=== PATIENT | female | born 1970 | race Caucasian/White ===

== ENCOUNTER 2017-05-02 13:51 | Emergency (ER) | payer MEDICAID ==
[2017-05-02] MEDS ORDERED: HYDROCODONE/ACETAMINOPHEN 5-325 MG TABLET PO ONE (15:11)
--- NOTE | 2017-05-02 15:13 | ER Document Report ---
HPI - HPI Patient complains to provider of: Foot injury Onset: Other - 3Days ago Onset/Duration: Persistent Quality of pain: Achy Pain Level: 3 Context: Patient states she was walking and injured her right ankle 3 days ago. Patient suspects that she may have rolled it. Patient complains of continued pain with weightbearing. Associated Symptoms: Other - Foot injury Exacerbated by: Standing, Movement, Walking Relieved by: Denies Similar symptoms previously: Yes Recently seen / treated by doctor: No - ROS ROS below otherwise negative: Yes Systems Reviewed and Negative: Yes All other systems reviewed and negative - CONSTITUTIONAL Constitutional: DENIES: Fever - NEURO Neurology: DENIES: Weakness - MUSCULOSKELETAL Musculoskeletal: REPORTS: Extremity pain - r ankle pain - DERM Skin Color: Normal Skin Problems: None Past Medical History - General Information source: Patient - Social History Smoking Status: Current Every Day Smoker Smoking Education Provided: Yes Frequency of alcohol use: None Drug Abuse: None Occupation: none Lives with: Family Family History: None Renal/ Medical History: Denies: Hx Peritoneal Dialysis Psychiatric Medical History: Reports: Hx Anxiety, Hx Depression Past Surgical History: Reports: Hx Orthopedic Surgery - 2 ankle surgery Vertical Provider Document - CONSTITUTIONAL Agree With Documented VS: Yes Exam Limitations: No Limitations General Appearance: WD/WN, No Apparent Distress - INFECTION CONTROL TRAVEL OUTSIDE OF THE [place] IN LAST 30 DAYS: No - HEENT HEENT: Atraumatic, Normocephalic - NECK Neck: Normal Inspection - RESPIRATORY Respiratory: No Respiratory Distress O2 Sat by Pulse Oximetry: 98 - CARDIOVASCULAR Pulses: Normal: Dorsalis pedis - MUSCULOSKELETAL/EXTREMETIES Musculoskeletal/Extremeties: MAEW, Tender - Right ankle tenderness to bilateral malleolar area, worse to lateral aspect. Patient with 2+ edema with ecchymosis. Patient with right lateral midfoot tenderness over fifth metatarsal , Edema, Eccymosis - NEURO Level of Consciousness: Awake, Alert, Appropriate Motor/Sensory: No Motor Deficit - DERM Integumentary: Warm, Dry Course - Vital Signs Vital signs: Temp Pulse Resp BP Pulse Ox 98.0 F 71 20 142/97 H 98 05/02/17 14:14 05/02/17 14:14 05/02/17 14:14 05/02/17 14:14 05/02/17 14:14 - Diagnostic Test Radiology reviewed: Reports reviewed Procedures - Immobilization Right Ankle Pre-Proc Neuro Vasc Exam: Normal Immobilizer type: Ankle stirrup Performed by: PCT Post-Proc Neuro Vasc Exam: Normal Alignment checked and good: Yes Discharge - Discharge Clinical Impression: Right foot pain, Elevated blood pressure reading Right ankle sprain Qualifiers: Encounter type: initial encounter Involved ligament of ankle: unspecified ligament Qualified Code(s): S93.401A - Sprain of unspecified ligament of right ankle, initial encounter Condition: Stable Disposition: HOME, SELF-CARE Instructions: Oral Narcotic Medication ([facility]), Sprain ([facility]), Sprained Ankle ([facility] ) Additional Instructions: Return immediately for any new or worsening symptoms Followup with your primary care provider, call tomorrow to make a followup appointment Prescriptions: Hydrocodone/Acetaminophen [[place] 5-325 Tablet] 1 each PO Q4 PRN #12 tablet PRN Reason: Forms: Elevated Blood Pressure, Smoking Cessation Education Referrals: [facility] ([facility]) [Provider Group] - Follow up as needed
--- NOTE | 2017-05-02 16:28 | RADIOLOGY REPORT (SQ) ---
EXAM DESCRIPTION: FOOT RIGHT COMPLETE COMPLETED DATE/TIME: 05/02/2017 4:13 pm REASON FOR STUDY: r lat foot/ankle pain COMPARISON: None. NUMBER OF VIEWS: Three views. TECHNIQUE: AP, lateral and oblique radiographic images acquired of the right foot. LIMITATIONS: None. FINDINGS: MINERALIZATION: Normal. BONES: No acute fracture or dislocation. No worrisome bone lesions. JOINTS: No effusions. SOFT TISSUES: No soft tissue swelling. No foreign body. OTHER: No other significant finding. IMPRESSION: NEGATIVE STUDY OF THE RIGHT FOOT. NO RADIOGRAPHIC EVIDENCE OF ACUTE INJURY. TECHNICAL DOCUMENTATION: JOB ID: [id number] [employer] All Rights Reserved
--- NOTE | 2017-05-02 16:28 | RADIOLOGY REPORT (SQ) ---
EXAM DESCRIPTION: ANKLE RIGHT COMPLETE COMPLETED DATE/TIME: 05/02/2017 4:13 pm REASON FOR STUDY: r lat foot/ankle pain COMPARISON: None. NUMBER OF VIEWS: Three views. TECHNIQUE: AP, lateral, and oblique radiographic images acquired of the right ankle. LIMITATIONS: None. FINDINGS: MINERALIZATION: Normal. BONES: No acute fracture or dislocation. No worrisome bone lesions. JOINTS: No effusions. SOFT TISSUES: No soft tissue swelling. No foreign body. OTHER: No other significant finding. IMPRESSION: NEGATIVE STUDY OF THE RIGHT ANKLE. NO RADIOGRAPHIC EVIDENCE OF ACUTE INJURY. TECHNICAL DOCUMENTATION: JOB ID: [id number] [employer]- All Rights Reserved
[2017-05-02 17:39] VITALS: BP 153/98
== END 2017-05-02 17:39 | disposition home or self-care (01) ==
LOC: ER 13:51
PROC: 2W3QX1Z Immobilization of Right Lower Leg using Splint (ICD-10-PCS; principal; 2017-05-02)
DX: S93.401A Sprain of unspecified ligament of right ankle, initial encounter (principal); M25.571 Pain in right ankle and joints of right foot; R03.0 Elevated blood-pressure reading, without diagnosis of hypertension; X50.1XXA Overexertion from prolonged static or awkward postures, initial encounter; F17.200 Nicotine dependence, unspecified, uncomplicated
CPT/HCPCS: 99283; 73610; 73630; 29515; L4350

== ENCOUNTER 2017-12-14 02:23 | Emergency (ER) | payer MEDICAID ==
[2017-12-14 05:08] LABS: ABSOLUTE EOSINOPHILS # (AUTO) 0.2 10^3/uL (0.0-0.6); ABSOLUTE LYMPHOCYTES (AUTO) 3.4 10^3/uL (0.5-4.7); ABSOLUTE MONOCYTES (AUTO) 0.5 10^3/uL (0.1-1.4); BASOPHILS % (AUTO) 0.4 % (0-2); HEMATOCRIT 37.3 % (36.0-47.0); HEMOGLOBIN 12.8 g/dL (12.0-15.5); LYMPHOCYTES % (AUTO) 41.4 % (13-45); MEAN CORPUSCULAR HEMOGLOBIN 30.3 pg (27.0-33.4); MEAN CORPUSCULAR HGB CONC 34.3 g/dL (32.0-36.0); MEAN CORPUSCULAR VOLUME 88 fl (80-97); MONOCYTES % (AUTO) 6.4 % (3-13); PLATELET COUNT 234 10^3/uL (150-450); RED BLOOD COUNT 4.22 10^6/uL (3.72-5.28); RED CELL DISTRIBUTION WIDTH 13.5 % (11.5-14.0); SEGMENTED NEUTROPHILS % (AUTO) 48.8 % (42-78); TOTAL CELLS COUNTED % (AUTO) 100 %; WHITE BLOOD COUNT 8.1 10^3/uL (4.0-10.5)
[2017-12-14 05:17] LABS: ALANINE AMINOTRANSFERASE 36 U/L (9-52); ALBUMIN 3.8 g/dL (3.5-5.0); ALKALINE PHOSPHATASE 117 U/L (38-126); ANION GAP 9 (5-19); ASPARTATE AMINO TRANSFERASE 26 U/L (14-36); BILIRUBIN,DIRECT 0.2 mg/dL (0.0-0.4); BILIRUBIN,TOTAL 0.2 mg/dL (0.2-1.3); BLOOD UREA NITROGEN 19 mg/dL (7-20); CARBON DIOXIDE 27 mmol/L (22-30); CHLORIDE 112 mmol/L (98-107); GLUCOSE 110 mg/dL (75-110); POTASSIUM 4.4 mmol/L (3.6-5.0); SODIUM 148.1 mmol/L (137-145)
[2017-12-14 05:19] LABS: ACETAMINOPHEN < 10 ug/mL (10-30); ALCOHOL < 10 mg/dL (NONE DETECTED); SALICYLATE < 1.0 mg/dL (2.0-20.0)
[2017-12-14 05:23] LABS: APPEARANCE,URINE SLIGHTLY-CLOUDY; BILIRUBIN,URINE NEGATIVE (NEGATIVE); COLOR,URINE YELLOW; GLUCOSE, URINE NEGATIVE (NEGATIVE); KETONES,URINE NEGATIVE (NEGATIVE); LEUKOCYTE ESTERASE,URINE NEGATIVE (NEGATIVE); NITRITE,URINE NEGATIVE (NEGATIVE); PROTEIN,URINE NEGATIVE (NEGATIVE); URINE SPECIFIC GRAVITY 1.024
[2017-12-14 05:34] LABS: URINE AMPHETAMINES SCREEN NEGATIVE; URINE BARBITURATES SCREEN NEGATIVE; URINE BENZODIAZEPINES SCREEN UNCONFIRMED POSITIVE; URINE COCAINE SCREEN NEGATIVE; URINE MARIJUANA (THC) SCREEN UNCONFIRMED POSITIVE; URINE METHADONE SCREEN NEGATIVE; URINE PHENCYCLIDINE SCREEN NEGATIVE
--- NOTE | 2017-12-14 06:20 | ER Document Report ---
ED Psych Disorder / Suicide - General Mode of Arrival: Ambulatory Information source: Patient TRAVEL OUTSIDE OF THE [place] IN LAST 30 DAYS: No <YADIRA SALDIVAR - Last Filed: 12/14/17 06:20> <VENTURA MARIN - Last Filed: 12/14/17 14:52> <ROLDAN TERRELL - Last Filed: 12/14/17 15:01> - General Chief Complaint: Suicidal Ideation Stated Complaint: PSYCH EVAL Time Seen by Provider: 12/14/17 03:20 Notes: Patient is a 47-year-old female who presents with her two sons and mobile crisis with chief complaint of depression. Patient reports multiple issues at home with her family. Patient lives with 2 of her sons as well as multiple extended family members and patient reports that there is a lot of "drama in the house. Patient reports that she needs a respite home to stay in. Patient initially denied any suicidal or homicidal ideations. Patient does report long- standing history of depression and anxiety for which she is not taking any medications for. At the end of my examination patient did reports that if I sent her home she will "kill herself by overdosing on medications or alternatively patient reported that she will harm other people as she states that she has visions of herself hurting people however she states that she has been able to refrain from following through on these visions. (YADIRA SALDIVAR) - Related Data Allergies/Adverse Reactions: cyclobenzaprine [From Flexeril] Allergy (Verified 04/12/17 09:17) diphenhydramine [From Benadryl Allergy] Allergy (Verified 04/12/17 09:17) Past Medical History - General Information source: Patient - Social History Smoking Status: Current Every Day Smoker Frequency of alcohol use: None Drug Abuse: Marijuana Family History: None Patient has suicidal ideation: Yes - OD, "get fucked up and sleep," drown Patient has homicidal ideation: No - Past Medical History Cardiac Medical History: Reports: Hx Hypercholesterolemia Renal/ Medical History: Denies: Hx Peritoneal Dialysis Musculoskeletal Medical History: Reports Hx Arthritis Psychiatric Medical History: Reports: Hx Anxiety, Hx Depression - +anxiety Past Surgical History: Reports: Hx Orthopedic Surgery - 2 ankle surgery <YADIRA SALDIVAR - Last Filed: 12/14/17 06:20> Review of Systems - Review of Systems Constitutional: No symptoms reported EENT: No symptoms reported Cardiovascular: No symptoms reported Respiratory: No symptoms reported Gastrointestinal: No symptoms reported Genitourinary: No symptoms reported Female Genitourinary: No symptoms reported Musculoskeletal: No symptoms reported Skin: No symptoms reported Hematologic/Lymphatic: No symptoms reported Neurological/Psychological: See HPI <YADIRA SALDIVAR - Last Filed: 12/14/17 06:20> Physical Exam <YADIRA SALDIVAR - Last Filed: 12/14/17 06:20> <VENTURA MARIN - Last Filed: 12/14/17 14:52> <ROLDAN TERRELL - Last Filed: 12/14/17 15:01> - Vital signs Vitals: Temp Pulse Resp BP Pulse Ox 98 F 88 19 166/99 H 97 12/14/17 02:24 12/14/17 02:24 12/14/17 02:24 12/14/17 02:24 12/14/17 02:24 - Notes Notes: PHYSICAL EXAMINATION: GENERAL: Well-appearing, well-nourished and in no acute distress. HEAD: Atraumatic, normocephalic. EYES: Pupils equal round and reactive to light, extraocular movements intact, conjunctiva are normal. ENT: Nares patent, oropharynx clear without exudates. Moist mucous membranes. NECK: Normal range of motion, supple without lymphadenopathy LUNGS: Breath sounds clear to auscultation bilaterally and equal. No wheezes rales or rhonchi. HEART: Regular rate and rhythm without murmurs ABDOMEN: Soft, nontender, nondistended abdomen. No guarding, no rebound. No masses appreciated. Female : deferred Musculoskeletal: Normal range of motion, no pitting or edema. No cyanosis. NEUROLOGICAL: Cranial nerves grossly intact. Normal speech, normal gait. Normal sensory, motor exams PSYCH: Normal mood, normal affect. SKIN: Warm, Dry, normal turgor, no rashes or lesions noted. (YADIRA SALDIVAR) Course - Laboratory Result Diagrams: 12/14/17 04:55 12/14/17 04:55 <YADIRA SALDIVAR - Last Filed: 12/14/17 06:20> - Laboratory Result Diagrams: 12/14/17 04:55 12/14/17 04:55 <VENTURA MARIN - Last Filed: 12/14/17 14:52> - Laboratory Result Diagrams: 12/14/17 04:55 12/14/17 04:55 <ROLDAN TERRELL - Last Filed: 12/14/17 15:01> - Re-evaluation Re-evalutation: Ms. Nolen is a 47-year-old female who presents with chief complaint of depression and anxiety. Patient is accompanied by her sons and as well as a mobile renal social worker. Patient reports that she needs respite from her home situation which she describes as "lots of drama". Patient initially denied any suicidal or homicidal thoughts to this provider however when patient asked if she would feel safe to go home patient now reporting that if I sent her home she will kill herself as patient does want to stay here. Patient also reports that she sees "visions" that show her harming other people. Then patient reports that she "just wants place to get some rest". I will not initiate the 24 hour hold at this time as patient is voluntarily here and I do not believe she is a flight risk. (YADIRA SALDIVAR) - Vital Signs Vital signs: Temp Pulse Resp BP Pulse Ox 97.8 F 71 15 134/87 H 96 12/14/17 09:25 12/14/17 09:25 12/14/17 09:25 12/14/17 09:25 12/14/17 09:25 - Laboratory Laboratory results interpreted by me: 12/14/17 12/14/17 04:55 04:55 Sodium 148.1 H Chloride 112 H Urine Urobilinogen 2.0 H Salicylates < 1.0 L Acetaminophen < 10 L Discharge <YADIRA SALDIVAR - Last Filed: 12/14/17 06:20> <VENTURA MARIN - Last Filed: 12/14/17 14:52> <ROLDAN TERRELL - Last Filed: 12/14/17 15:01> - Discharge Clinical Impression: Bipolar disorder, unspecified Qualifiers: Active/Remission status: remission status unspecified Qualified Code(s): F31.9 - Bipolar disorder, unspecified Condition: Stable Disposition: HOME, SELF-CARE Additional Instructions: Bipolar Disorder Bipolar disorder is also called manic-depressive disorder. Depression alternates with brain hyperactivity called diana. Each phase lasts from several days to a few weeks. We don't know exactly what causes bipolar disorder , but it's treatable. During the "manic phase," you may feel elated and energetic. You may have racing thoughts, rapid speech, increased activity, and grandiose ideas. During this time, you may not realize how poor your judgement is. Inappropriate spending, drug abuse, excessive alcohol use, marriage problems, and irresponsible sexual behavior are common during the manic phase. During the "depressive phase," you might feel depressed, guilty, worthless , fatigued, and unable to concentrate. You might have thoughts of suicide. Good treatments are available for bipolar disorder. [place] is a classic drug for bipolar disorder, and is still often useful. If the manic phase is very mild, an antidepressant alone can be prescribed. If the manic phase is very severe, an antipsychotic medicine (such as Haldol) may be needed. The treatment must be matched to your symptoms, so it's important to work closely with your psychiatric care provider. Contact your physician, the hospital emergency center, crisis line, or your counsellor if you are losing control or having self-destructive thoughts. Anxiety The physician feels that some of your health problems are being caused by anxiety. Anxiety affects your health in many ways. Anxiety alone can cause palpitations, sweats, chest pains, abdominal pains, shortness of breath, and headaches. It contributes to ulcer disease, high blood pressure, irritable bowel syndrome, and has been shown to cause flare-ups of many other diseases. Anxiety is not a simple disorder to treat. If the anxiety is due to recent life stresses, you may simply need time to "work through" the changes. If the anxiety is due to an underlying unhappiness with yourself or due to psychiatric disturbance, professional help will be needed. Your physician can refer you for further help if needed. Anti-anxiety medication is occasionally given if the stress is acute or if you are having trouble sleeping. Chronic or frequent use of these medications is not a good idea because the body becomes reliant on it, preventing you from dealing with life's normal stresses. Your recommended to follow-up with outpatient mental health provider of your choice; you have been provided a local resource list of providers. You have also been provided prescriptions for Zyprexa 5 mg twice daily and Cogentin 1 mg daily please take as directed and do not take your Seroquel and Klonopin please. AT ANY TIME, IF YOUR SYMPTOMS CHANGE SIGNIFICANTLY OR WORSEN OR YOU DEVELOP NEW SYMPTOMS, RETURN TO THE EMERGENCY DEPARTMENT IMMEDIATELY FOR RE-EVALUATION. Prescriptions: Benztropine Mesylate [Cogentin 1 mg Tablet] 1 tab PO DAILY #7 tab Olanzapine [Zyprexa 5 mg Tablet] 5 mg PO Q12 #14 tablet Referrals: PANTERA CARRASCO, [employer] CLEAN[employer] MANAGER [Primary Care Provider] - Follow up as needed [facility] [Outside] - Follow up as needed [facility] [Outside] - Follow up in 3-5 days
--- NOTE | 2017-12-14 09:56 | ER Document Report ---
Doctor's Note Notes: 12/14/17 09:55 Patient's records have been reviewed. It appears she is here with depression and increased stress due to the home environment. She is presently sleeping soundly. The plan is to evaluate for medication changes, then discharge to home. 12/14/17 13:49 The patient is complaining about pain wanting her gabapentin she is supposed to get. And her Celebrex. She tells me she takes 600 mg of Celebrex at a time, reviewing her records she actually is prescribed 200 mg twice daily. She also wants her e-cigarette vapor back and states she was told she could go outside to smoke. I told her that was not going to happen, and that we could get her nicotine patch. The patient proceeded to tell me that those working here "need to get their shit together".
[2017-12-14] MEDS ORDERED: BENZTROPINE MESYLATE 1 MG TABLET PO ONE (11:00)
[2017-12-14] MEDS ORDERED: OLANZAPINE 5 MG TABLET PO SCH (11:00)
--- NOTE | 2017-12-14 12:42 | PSYCHOLOGICAL NOTE ---
Psych Note - Psych Note Psych Note: Reason for Consult: suicidal ideation Patient is a 47-year-old female who presents with her two sons and mobile crisis with chief complaint of depression. Patient reports multiple issues at home with her family. Patient lives with 2 of her sons as well as multiple extended family members and patient reports that there is a lot of "drama" in the house. Patient reports that she needs a respite home to stay in. Patient disclosed she called mobile crisis because she "felt like giving up.... I feel worthless...I;m in the way... I am tired of hurting all the time." She continued disclosed frustration not being able to "settle." She was able to clarify that in disclosing that she moved to [facility] approximately a year or so ago to spend time with her grandparents. Both her grandparents have since passed with her grandmother passing in June and then her great father following in August. She discloses difficulty in getting over her grief and losing her grandmother. She reports she has "problems with issues my brain... I have not been the same since" her grandmother's passing. She disclosed that she is diagnosed with bipolar and has significant mood swings ; "people get scared to be around me.... When I talk to them they just walk away because he do not know what to say they just do not understand." She continues to disclose significant pain from her arthritis in addition to taking medications for that pain she is prescribed Seroquel and Klonopin. Chart review conducted attending physician noted Patient initially denied any suicidal or homicidal ideations. Patient does report long-standing history of depression and anxiety for which she is not taking any medications for. At the end of my examination patient did reports that if I sent her home she will "kill herself by overdosing on medications or alternatively patient reported that she will harm other people as she states that she has visions of herself hurting people however she states that she has been able to refrain from following through on these visions. Patient is alert and orientated to person, place, time and circumstance. Mood is dysphoric with tearful affect. Patient endorses passive suicidal and homicidal ideation i.e. no plans means or intent. Patient reports having visions of hurting people however there there is no evidence of delusions and behavior is congruent with intact reality based presentation i.e. organized and linear thought processes. Eye contact was well maintained. Conversational speech was within normal rate, tone and prosody. Intellectual abilities appear to be within average range. Attention and concentration are fair. Insight, judgment, impulse control are fair. Clinician met with patient again. She discloses she is feeling much better. She discussed the stressors in her home and was able to engage in problem solving with little assistance for clinician. Patient plans to obtain mental health service. Patient denies continued suicidal ideation. Medication recommendations per [facility]'s contracted psychiatrist Dr. Tariq GREENWOOD are as follows 1. Please discontinue Seroquel and Klonopin 2. Please start Zyprexa 5 mg twice daily 3. Please start Cogentin 1 mg daily 296.80 (F31.9) Unspecified bipolar disorder Impression/plan: Patient is cleared from acute psychiatric services. Patient denies continued suicidal ideation and is presenting calm. She was able to discuss the stressors in her home and was able to engage in problem solving with little assistance for clinician. She is demonstrating forward thinking with problem solving (ie. identifying her needs and plan of action). Patient is recommended to follow through with obtaining outpatient mental health services. Dr. Clemens was consulted on the care and management of this patient; attending physician is in agreement with recommendations and disposition.
[2017-12-14] MEDS ORDERED: NICOTINE 14 MG/24 HR PATCH.TD24 TD ONE (13:49)
[2017-12-14] MEDS ORDERED: CELECOXIB 200 MG CAPSULE PO SCH (14:00)
[2017-12-14] MEDS ORDERED: GABAPENTIN 300 MG CAPSULE PO SCH (14:00)
[2017-12-14 15:13] VITALS: BP 143/94
--- NOTE | 2017-12-14 19:36 | EKG REPORT ---
SEVERITY:- NORMAL ECG - SINUS RHYTHM : Confirmed by: Irma Benites MD 14-Dec-2017 19:35:33
[2017-12-15] MEDS ORDERED: BENZTROPINE MESYLATE 1 MG TABLET PO SCH (10:00)
== END 2017-12-14 15:13 | disposition home or self-care (01) ==
LOC: ER 02:23
DX: F31.9 Bipolar disorder, unspecified (principal); F41.9 Anxiety disorder, unspecified; Z88.8 Allergy status to other drugs, medicaments and biological substances; F17.200 Nicotine dependence, unspecified, uncomplicated; E78.00 Pure hypercholesterolemia, unspecified; M19.90 Unspecified osteoarthritis, unspecified site
CPT/HCPCS: 93005; 36415; 80307 ×4; 84703; 85025; 80053; 81001; 93010; J3490 ×3; 99285

== ENCOUNTER 2018-06-11 21:36 | Emergency (ER) | payer SELFPAY ==
[2018-06-11] MEDS ORDERED: PREDNISONE 20 MG TABLET PO ONE (23:35)
[2018-06-11] MEDS ORDERED: IPRATROPIUM/ALBUTEROL 0.5-2.5 MG/3 ML AMPUL NEB ONE (23:35)
[2018-06-11] MEDS ORDERED: SULFAMETHOXAZOLE/TRIMETHOPRIM 800-160 MG TABLET PO ONE (23:36)
[2018-06-11] MEDS ORDERED: CEPHALEXIN 500 MG CAPSULE PO ONE (23:36)
--- NOTE | 2018-06-12 00:39 | RADIOLOGY REPORT (SQ) ---
EXAM DESCRIPTION: XR CHEST 2 VIEWS COMPLETED DATE/TME: 06/11/2018 23:35 CLINICAL HISTORY: 47 years, Female, wheeze, SOB COMPARISON: None. NUMBER OF VIEWS: 2 TECHNIQUE: Frontal and lateral views of the chest LIMITATIONS: None. FINDINGS: Heart size is normal. Lungs are clear. No pneumothorax IMPRESSION: Negative chest copyright 2010 [employer]- All Rights Reserved
--- NOTE | 2018-06-12 00:49 | ER Document Report ---
ED General - General Chief Complaint: Abscess Stated Complaint: Cough Time Seen by Provider: 06/11/18 23:21 Notes: Patient is a 47-year-old female presents to the emergency department complaining of generalized cough and congestion for the entire month of May. Patient states for the last 2 weeks she has noticed that bilateral ears are clogged and that sometimes it is hard to take a deep breath. Patient also notes some swelling and erythema noted to the right side of her abdomen. Patient denies any fever, nausea, vomiting, abdominal pain, chest pain. Past medical history: None Medications: None Allergies: Benadryl, Flexeril TRAVEL OUTSIDE OF THE [place] IN LAST 30 DAYS: No - Related Data Allergies/Adverse Reactions: cyclobenzaprine [From Flexeril] Allergy (Verified 04/12/17 09:17) diphenhydramine [From Benadryl Allergy] Allergy (Verified 04/12/17 09:17) Past Medical History - General Information source: Patient - Social History Smoking Status: Current Every Day Smoker Chew tobacco use (# tins/day): No Frequency of alcohol use: None Drug Abuse: None Family History: None Patient has suicidal ideation: No Patient has homicidal ideation: No - Past Medical History Cardiac Medical History: Reports: Hx Hypercholesterolemia Renal/ Medical History: Denies: Hx Peritoneal Dialysis Musculoskeletal Medical History: Reports Hx Arthritis Psychiatric Medical History: Reports: Hx Anxiety, Hx Depression - +anxiety Past Surgical History: Reports: Hx Orthopedic Surgery - 2 ankle surgery, R knee Review of Systems - Review of Systems Constitutional: See HPI EENT: See HPI Cardiovascular: See HPI Respiratory: See HPI Gastrointestinal: No symptoms reported Genitourinary: No symptoms reported Female Genitourinary: No symptoms reported Musculoskeletal: No symptoms reported Skin: See HPI Hematologic/Lymphatic: No symptoms reported Neurological/Psychological: No symptoms reported Physical Exam - Vital signs Vitals: Temp Pulse Resp BP Pulse Ox 98.8 F 104 H 18 144/97 H 97 06/11/18 22:42 06/11/18 22:42 06/11/18 22:42 06/11/18 22:42 06/11/18 22:42 - Notes Notes: GENERAL: Alert, interacts well. No acute distress. HEAD: Normocephalic, atraumatic. No frontal or maxillary sinus tenderness EYES: Pupils equal, round, and reactive to light. Extraocular movements intact. ENT: Oral mucosa moist, tongue midline. Nares patent, swollen turbinates bilaterally TM's intact, nonerythematous, nonbulging. Bilateral canals patent. No tragal tenderness bilaterally. Pharynx within normal limits, no palatal petechiae or exudate noted. NECK: Full range of motion. Supple. Trachea midline. No lymphadenopathy appreciated LUNGS: no rales, or rhonchi. No respiratory distress. Inspiratory and expiratory wheeze heard all ortiz HEART: Regular rate and rhythm. No murmur ABDOMEN: Soft, non-tender. Non-distended. Bowel sounds present in all 4 quadrants. EXTREMITIES: Moves all 4 extremities spontaneously. No edema, normal radial and dorsalis pedis pulses bilaterally. No cyanosis. BACK: no cervical, thoracic, lumbar midline tenderness. No saddle anesthesia, normal distal neurovascular exam. NEUROLOGICAL: Alert and oriented x3. Normal speech. cranial nerves II through XII grossly intact PSYCH: Normal affect, normal mood. SKIN: Warm, dry, normal turgor. 15 cm x 7 cm area of erythema noted to the right lower abdomen. There are no areas of fluctuance or induration noted. Course - Re-evaluation Re-evalutation: 06/12/18 00:45 After breathing treatment in the emergency room patient's lung sounds are now clear and equal in all ortiz. Patient's chest x-ray showed no signs of pneumonia, pneumothorax, rib fracture. Discussed use of nasal spray to help with patient's nasal congestion. Erythema noted to patient's right abdomen has no areas of fluctuance or induration, Discussed need to follow-up closely with primary care provider or return to the emergency room should it get worse. Patient voices understanding. Patient stable for discharge. - Vital Signs Vital signs: Temp Pulse Resp BP Pulse Ox 98.8 F 104 H 18 144/97 H 97 06/11/18 22:42 06/11/18 22:42 06/11/18 22:42 06/11/18 22:42 06/11/18 22:42 Discharge - Discharge Clinical Impression: Bronchospasm Cellulitis Qualifiers: Site of cellulitis: trunk Site of cellulitis of trunk: abdominal wall Qualified Code(s): L03.311 - Cellulitis of abdominal wall Upper respiratory infection Qualifiers: URI type: unspecified viral URI Qualified Code(s): J06.9 - Acute upper respiratory infection, unspecified Condition: Stable Disposition: HOME, SELF-CARE Instructions: Bronchitis With Bronchospasm (Wheezing) ([facility]), Cellulitis ([facility]), Cephalexin ([facility]), Trimethoprim-Sulfa ([facility]), Upper Respiratory Illness ([facility]) Additional Instructions: As we discussed you have been seen and treated in the emergency room for an upper respiratory infection. Your upper respiratory infection has caught something called bronchitis. This is an inflammation in your lungs which is inevitably is causing you to wheeze. Please take albuterol and steroids as prescribed. Please take antibiotics as prescribed for the redness noted to your right abdomen wall. Please return to the emergency room immediately should the redness in your right abdomen will get worse, you develop a fever or have any other concerning symptoms. Prescriptions: Albuterol Sulfate [Proair HFA Inhalation Aerosol 8.5 gm MDI] 2 puff IH Q4H PRN #1 mdi PRN Reason: Cephalexin Monohydrate [Keflex 500 mg Capsule] 500 mg PO BID 7 Days #14 capsule Mometasone Furoate [Nasonex] 1 spray NS Q12 #1 spray.pump Prednisone [Deltasone 20 mg Tablet] 3 tab PO DAILY 5 Days tablet Sulfamethoxazole/Trimethoprim [Bactrim Ds Tablet] 1 each PO BID 7 Days #14 tablet
[2018-06-12 01:03] VITALS: BP 143/88
== END 2018-06-12 01:03 | disposition home or self-care (01) ==
LOC: ER 21:36
DX: L03.311 Cellulitis of abdominal wall (principal); J06.9 Acute upper respiratory infection, unspecified; J98.01 Acute bronchospasm; R05 Cough; R09.81 Nasal congestion; F17.200 Nicotine dependence, unspecified, uncomplicated
CPT/HCPCS: 94640; 99283; 71046; J7512; J7620

== ENCOUNTER 2018-08-12 21:08 | Emergency (ER) | payer SELFPAY ==
[2018-08-13 00:52] LABS: AMORPHOUS SEDIMENT,URINE 1+ /HPF; APPEARANCE,URINE TURBID; BILIRUBIN,URINE NEGATIVE (NEGATIVE); COLOR,URINE YELLOW; GLUCOSE, URINE NEGATIVE (NEGATIVE); KETONES,URINE NEGATIVE (NEGATIVE); LEUKOCYTE ESTERASE,URINE LARGE (NEGATIVE); NITRITE,URINE NEGATIVE (NEGATIVE); PROTEIN,URINE NEGATIVE (NEGATIVE); URINE SPECIFIC GRAVITY 1.021; UROBILINOGEN,URINE NEGATIVE mg/dL (<2.0)
[2018-08-13 01:03] LABS: ABSOLUTE BASOPHILS # (AUTO) 0.1 10^3/uL (0.0-0.2); ABSOLUTE EOSINOPHILS # (AUTO) 0.1 10^3/uL (0.0-0.6); ABSOLUTE MONOCYTES (AUTO) 0.7 10^3/uL (0.1-1.4); ABSOLUTE NEUT (AUTO) 6.4 10^3/uL (1.7-8.2); BASOPHILS % (AUTO) 0.5 % (0-2); EOSINOPHILS % (AUTO) 0.9 % (0-6); HEMATOCRIT 42.3 % (36.0-47.0); HEMOGLOBIN 14.6 g/dL (12.0-15.5); MEAN CORPUSCULAR HEMOGLOBIN 30.6 pg (27.0-33.4); MEAN CORPUSCULAR HGB CONC 34.5 g/dL (32.0-36.0); MEAN CORPUSCULAR VOLUME 89 fl (80-97); MONOCYTES % (AUTO) 5.9 % (3-13); PLATELET COUNT 254 10^3/uL (150-450); RED BLOOD COUNT 4.77 10^6/uL (3.72-5.28); RED CELL DISTRIBUTION WIDTH 13.2 % (11.5-14.0); SEGMENTED NEUTROPHILS % (AUTO) 56.7 % (42-78); TOTAL CELLS COUNTED % (AUTO) 100 %; WHITE BLOOD COUNT 11.2 10^3/uL (4.0-10.5)
[2018-08-13 02:15] LABS: ANION GAP 12 (5-19); BLOOD UREA NITROGEN 13 mg/dL (7-20); CALCIUM 10.7 mg/dL (8.4-10.2); CARBON DIOXIDE 25 mmol/L (22-30); CHLORIDE 99 mmol/L (98-107); GLUCOSE 101 mg/dL (75-110); POTASSIUM 3.7 mmol/L (3.6-5.0); SODIUM 136.4 mmol/L (137-145)
[2018-08-13] MEDS ORDERED: KETOROLAC TROMETHAMINE INJ/PF 30 MG/1 ML SDV IV ONE (03:03)
--- NOTE | 2018-08-13 03:15 | ER Document Report ---
ED General - General Chief Complaint: Flank Pain Stated Complaint: FLANK PAIN Time Seen by Provider: 08/13/18 00:39 TRAVEL OUTSIDE OF THE [place] IN LAST 30 DAYS: No - HPI Notes: Presents emergency department for evaluation of bilateral flank pain. She has a history of chronic back pain. She states she used to be in pain management but can no longer afford it. She states she is "worried about my kidneys." She denies any fevers or chills. No vomiting. She states she does have nausea when her pain is severe. Her pain does not radiate. She denies any bowel or bladder incontinence, no saddle anesthesia, no focal numbness or weakness. She denies any urinary frequency, dysuria. - Related Data Allergies/Adverse Reactions: cyclobenzaprine [From Flexeril] Allergy (Verified 04/12/17 09:17) diphenhydramine [From Benadryl Allergy] Allergy (Verified 04/12/17 09:17) Past Medical History - General Information source: Patient - Social History Smoking Status: Unknown if Ever Smoked Family History: Reviewed & Not Pertinent Patient has suicidal ideation: No Patient has homicidal ideation: No - Past Medical History Cardiac Medical History: Reports: Hx Hypercholesterolemia Renal/ Medical History: Denies: Hx Peritoneal Dialysis Musculoskeletal Medical History: Reports Hx Arthritis Psychiatric Medical History: Reports: Hx Anxiety, Hx Depression - +anxiety Past Surgical History: Reports: Hx Orthopedic Surgery - 2 ankle surgery, R knee Review of Systems - Review of Systems Constitutional: No symptoms reported EENT: No symptoms reported Cardiovascular: No symptoms reported Respiratory: No symptoms reported Gastrointestinal: See HPI Genitourinary: No symptoms reported Musculoskeletal: See HPI Skin: No symptoms reported Neurological/Psychological: No symptoms reported Physical Exam - Vital signs Vitals: Temp Pulse Resp BP Pulse Ox 97.7 F 90 14 145/93 H 98 08/12/18 21:16 08/12/18 21:16 08/12/18 21:16 08/12/18 21:16 08/12/18 21:16 - Notes Notes: Vital signs reviewed, please refer to chart. Patient is normocephalic, atraum atic. Pupils equal round, reactive to light. Neck is supple without meningismus. Heart is regular rate and rhythm. Lungs are clear to auscultation bilaterally. Abdomen is soft, nontender, normoactive bowel sounds throughout. Extremities without cyanosis, clubbing, edema. Peripheral pulses are equal. Skin is warm and dry. Examination of the spine yields no midline tenderness or step-off. There is paraspinal musculature tenderness noted from approximately T10 and through the sacrum with mild associated spasm. Negative straight leg raise bilaterally. Patellar and Achilles reflexes are 2+. Strength is plus 5 out of 5 bilateral lower extremities. Sensation is intact. Course - Re-evaluation Re-evalutation: 08/13/18 03:12 Presents emergency department for evaluation. She is concerned about her kidneys. Laboratory investigations failed to reveal any significant abnormalities in her creatinine. Urinalysis is ordered. She does have some leukocyte esterase. She denies any urinary symptoms. Given the presence of bacteria, the urine was sent for culture. She will be contacted if it is found to be positive. At this point I will send her home with anti-inflammatories and muscle relaxers. She is to follow-up with primary care, return to the emergency department with worsening or new concerning symptoms of any sort. - Vital Signs Vital signs: Temp Pulse Resp BP Pulse Ox 97.7 F 90 14 145/93 H 98 08/12/18 21:16 08/12/18 21:16 08/12/18 21:16 08/12/18 21:16 08/12/18 21:16 - Laboratory Result Diagrams: 08/13/18 00:35 08/13/18 01:45 Laboratory results interpreted by me: 08/12/18 08/13/18 08/13/18 21:30 00:35 01:45 WBC 11.2 H Sodium 136.4 L Calcium 10.7 H Urine Blood SMALL H Ur Leukocyte Esterase LARGE H Discharge - Discharge Clinical Impression: Low back pain Condition: Stable Disposition: HOME, SELF-CARE Instructions: Low Back Pain ([facility]) Additional Instructions: Moist heat to the lower back. Take medications as prescribed. Follow-up with your doctor this week. If your urine culture is positive, he will be contacted. Return to the emergency department with worsening or new concerning symptoms.
[2018-08-13 04:30] VITALS: BP 129/92
== END 2018-08-13 04:30 | disposition home or self-care (01) ==
LOC: ER 21:08
DX: M54.5 Low back pain (principal); R10.9 Unspecified abdominal pain; G89.29 Other chronic pain; M54.9 Dorsalgia, unspecified; E78.00 Pure hypercholesterolemia, unspecified
CPT/HCPCS: 99284; 96374; 36415; 87086; 85025; 80048; 81001; J1885

== ENCOUNTER → 2019-01-22 | Outpatient (CLI) | payer MEDICAID ==
--- NOTE | 2019-01-22 16:06 | RADIOLOGY REPORT (SQ) ---
EXAM DESCRIPTION: VENOUS UNILATERAL LOWER COMPLETED DATE/TIME: 01/22/2019 3:50 pm REASON FOR STUDY: RLE PAIN/SWELLING M79.661 PAIN IN RIGHT LOWER LEG R60.9 EDEMA, UNSPECIFIED COMPARISON: None. TECHNIQUE: Dynamic and static jones scale and color images acquired of the right leg venous system. S elected spectral images acquired with additional compression and augmentation maneuvers. The contrala teral common femoral vein and saphenofemoral junction were also imaged. Images stored on PACS. LIMITATIONS: None. FINDINGS: COMMON FEMORAL: Normal phasicity, compression and augmentation. No visualized echogenic ma terial on jones scale. No defects on color images. FEMORAL: Normal compression and augmentation. No visualized echogenic material on jones scale. No defe cts on color images. POPLITEAL: Normal compression, augmentation. No visualized echogenic material on jones scale. No defec ts on color images. CALF VESSELS: Normal compression, augmentation. No visualized echogenic material on jones scale. No de fects on color images. GSV and SSV: Normal compression, augmentation. No visualized echogenic material on jones scale. No def ects on color images. ANY DEEP VENOUS INSUFFICIENCY: Not evaluated. ANY EVIDENCE OF POPLITEAL CYST: No. OTHER: No other significant finding. CONTRALATERAL COMMON FEMORAL VEIN AND SAPHENOFEMORAL JUNCTION: Normal phasicity, compression and augmentation. No visualized echogenic material on jones scale. No de fects on color images. IMPRESSION: NO EVIDENCE OF DVT OR SVT IN THE RIGHT LEG. TECHNICAL DOCUMENTATION: JOB ID: [id number] [employer]- All Rights Reserved Reading location - IP/workstation name: [email or web address]
== END ==
LOC: SP 14:50
PROVIDERS: ATTEND Physician Assistant
DX: M79.661 Pain in right lower leg (principal); M79.651 Pain in right thigh
CPT/HCPCS: 93971

== ENCOUNTER 2019-08-16 12:16 | Emergency (ER) | payer SELFPAY ==
--- NOTE | 2019-08-16 12:28 | ER Document Report ---
ED Medical Screen (RME) - General Chief Complaint: Suicidal Ideation Stated Complaint: SUICIDAL IDEATION Time Seen by Provider: 08/16/19 12:21 Primary Care Provider: MELITA GODWIN PA [Primary Care Provider] - Follow up as needed Mode of Arrival: Ambulatory Information source: Patient Notes: 48-year-old female with history of depression and high blood pressure presents emergency department with complaints of suicidal ideations for the past month. She reports she just does not want to wake up. She denies having a plan. She reports prior history of depression. She does not have insurance so she could not follow-up at an time with a mental health worker. She denies past medical history of suicide attempt or though she reports she has had history of depressi on. No physical complaints such as fever vomiting diarrhea. I have greeted and performed a rapid initial assessment of this patient. A comprehensive ED assessment and evaluation of the patient, analysis of test results and completion of the medical decision making process will be conducted by additional ED providers. TRAVEL OUTSIDE OF THE [place] IN LAST 30 DAYS: No - Related Data Allergies/Adverse Reactions: cyclobenzaprine [From Flexeril] Allergy (Verified 04/12/17 09:17) diphenhydramine [From Benadryl Allergy] Allergy (Verified 04/12/17 09:17) Past Medical History - Past Medical History Cardiac Medical History: Reports: Hx Hypercholesterolemia Renal/ Medical History: Denies: Hx Peritoneal Dialysis Musculoskeltal Medical History: Reports Hx Arthritis Psychiatric Medical History: Reports: Hx Anxiety, Hx Depression - +anxiety Past Surgical History: Reports: Hx Orthopedic Surgery - 2 ankle surgery, R knee Doctor's Discharge - Discharge Referrals: MELITA GODWIN PA [Primary Care Provider] - Follow up as needed
[2019-08-16 13:06] LABS: ABSOLUTE EOSINOPHILS # (AUTO) 0.1 10^3/uL (0.0-0.6); ABSOLUTE LYMPHOCYTES (AUTO) 2.3 10^3/uL (0.5-4.7); ABSOLUTE MONOCYTES (AUTO) 0.3 10^3/uL (0.1-1.4); BASOPHILS % (AUTO) 0.3 % (0-2); EOSINOPHILS % (AUTO) 0.5 % (0-6); HEMATOCRIT 43.9 % (36.0-47.0); HEMOGLOBIN 14.9 g/dL (12.0-15.5); LYMPHOCYTES % (AUTO) 19.9 % (13-45); MEAN CORPUSCULAR HEMOGLOBIN 30.3 pg (27.0-33.4); MEAN CORPUSCULAR VOLUME 89 fl (80-97); MONOCYTES % (AUTO) 2.8 % (3-13); PLATELET COUNT 244 10^3/uL (150-450); RED BLOOD COUNT 4.93 10^6/uL (3.72-5.28); RED CELL DISTRIBUTION WIDTH 13.2 % (11.5-14.0); SEGMENTED NEUTROPHILS % (AUTO) 76.5 % (42-78); TOTAL CELLS COUNTED % (AUTO) 100 %; WHITE BLOOD COUNT 11.7 10^3/uL (4.0-10.5)
[2019-08-16 13:15] LABS: APPEARANCE,URINE CLOUDY; BILIRUBIN,URINE NEGATIVE (NEGATIVE); COLOR,URINE AMBER; GLUCOSE, URINE NEGATIVE (NEGATIVE); KETONES,URINE NEGATIVE (NEGATIVE); LEUKOCYTE ESTERASE,URINE TRACE (NEGATIVE); NITRITE,URINE NEGATIVE (NEGATIVE); PROTEIN,URINE 30 mg/dL (NEGATIVE); URINE SPECIFIC GRAVITY 1.024; UROBILINOGEN,URINE NEGATIVE mg/dL (<2.0)
[2019-08-16 13:18] LABS: ACETAMINOPHEN < 10 ug/mL (10-30); ALBUMIN 4.3 g/dL (3.5-5.0); ALCOHOL < 10 mg/dL (NONE DETECTED); ALKALINE PHOSPHATASE 134 U/L (38-126); ANION GAP 12 (5-19); ASPARTATE AMINO TRANSFERASE 23 U/L (14-36); BILIRUBIN,DIRECT 0.3 mg/dL (0.0-0.4); BILIRUBIN,TOTAL 0.4 mg/dL (0.2-1.3); BLOOD UREA NITROGEN 11 mg/dL (7-20); CALCIUM 10.3 mg/dL (8.4-10.2); CARBON DIOXIDE 28 mmol/L (22-30); CHLORIDE 103 mmol/L (98-107); GLUCOSE 154 mg/dL (75-110); POTASSIUM 3.3 mmol/L (3.6-5.0); SALICYLATE < 1.0 mg/dL (2.0-20.0)
[2019-08-16 13:26] LABS: URINE AMPHETAMINES SCREEN NEGATIVE; URINE BARBITURATES SCREEN NEGATIVE; URINE BENZODIAZEPINES SCREEN NEGATIVE; URINE COCAINE SCREEN NEGATIVE; URINE MARIJUANA (THC) SCREEN NEGATIVE; URINE METHADONE SCREEN NEGATIVE; URINE PHENCYCLIDINE SCREEN NEGATIVE
[2019-08-16] MEDS: BENZTROPINE MESYLATE 1 MG TABLET PO SCH (15:00)
[2019-08-16] MEDS: FLUOXETINE HCL 20 MG CAPSULE PO SCH (15:00)
--- NOTE | 2019-08-16 15:10 | PSYCHOLOGICAL NOTE ---
Psych Note - Psych Note Date seen by psych provider: 08/16/19 Time seen by psych provider: 13:30 Psych Note: Patient is a 48-year-old female who presents to ED via POV for suicidal ideation. Patient was last seen by behavioral health on 12/14/2017 with similar concerns. Patient Patient reports she has been "suffering for a while" and has been "contemplating suicide." Patient describes increasing distress related to acute and chronic psychosocial stressors. Patient states she is underemployed, landlord-tenant conflict, has a son who is addicted to methamphetamines, overweight, and has a job that is "too demanding for me." Patient states she "feels useless, cursed, and feels like nothing." Patient states she does not want to but "feel like I have no future." Patient reports she doesn't like "feeling like this." Patient complains of racing thoughts, lack of motivation, decreased appetite, and overthinking. Patient states she has had "various thoughts" about how she would commit suicide, and identified thoughts of going to sleep and not waking up, hanging, slitting wrists, and drowning. Patient states she wants to live, but sometimes she wants to . Patient denies history of suicide attempt. Patient states she has no issues with completing personal ADLs, however patient states "cleaning my home is a problem." Patient states getting up and going to the bathroom is exhausting. Patient reports prior mental health diagnosis of Depression and Schizophrenia. Patient states she was diagnosed with Schizophrenia "a while ago" because she "heard people call my name." Patient denies command auditory hallucinations. Patient denies current auditory and visual hallucinations. Patient reports a prior inpatient psychiatric hospitalization at [facility] in [place], [place] for depression. Patient is alert and oriented to person, place, time and circumstance. Mood is tearful with congruent affect. Patient endorses suicidal ideation with no plan or intent. Patient denies homicidal ideation. Delusions are absent and behavior is congruent with an intact reality based presentation (i.e., organized and linear through processes). There is no observed behavior that suggests patient is responding to internal stimuli. Patient is able to engage in organized, rational thought processes. Patient is able to express needs and wants in a logical manner. Patient denies current auditory and visual hallucinations. Eye contact is appropriate. Conversational speech is within normal rate, tone, and prosody. Intellectual ability appears to be within average range. Attention and concentration are good. Insight, judgment and impulse control are currently good. Medication recommendations per [facility] contracted psychiatrist Dr. Tariq MD are as follows: Add Zyprexa 5MG, twice a day Add Prozac 20MG, daily Add Cogentin 1MG, daily Impression/Plan: Patient is recommended for overnight hospitalization for medication stabilization and observation. Patient is experiencing significant emotional distress related to chronic and acute psychosocial stressors. Patient endorses suicidal ideation with no plan or intent. Patient would benefit from medication stabilization. Patient will be reevaluated. Dr. Clemens was consulted on the care and management of this patient; attending physician is in agreement with recommendations and disposition.
--- NOTE | 2019-08-16 15:42 | RADIOLOGY REPORT (SQ) ---
EXAM DESCRIPTION: CHEST SINGLE VIEW COMPLETED DATE/TIME: 08/16/2019 3:03 pm REASON FOR STUDY: cough COMPARISON: 2019 NUMBER OF VIEWS: One view. TECHNIQUE: Single frontal radiographic view of the chest acquired. LIMITATIONS: None. FINDINGS: LUNGS AND PLEURA: No opacities, masses or pneumothorax. No pleural effusion. MEDIASTINUM AND HILAR STRUCTURES: No masses. Contour normal. HEART AND VASCULAR STRUCTURES: Heart normal in size. Normal vasculature. BONES: No acute findings. HARDWARE: None in the chest. OTHER: No other significant finding. IMPRESSION: NO SIGNIFICANT RADIOGRAPHIC FINDING IN THE CHEST. TECHNICAL DOCUMENTATION: JOB ID: [id number] [employer]- All Rights Reserved Reading location - IP/workstation name: [email or web address]
[2019-08-16] MEDS: OLANZAPINE 5 MG TABLET PO SCH (18:29)
--- NOTE | 2019-08-17 09:33 | ER Document Report ---
Doctor's Note Notes: 08/17/19 09:33 I reviewed the chart. Patient had presented for suicidal ideation without definitive plan. She is sleeping quietly at this time in no distress. Awaiting psychiatric team evaluation and plan
--- NOTE | 2019-08-17 09:52 | PSYCHOLOGICAL NOTE ---
Psych Note - Psych Note Date seen by psych provider: 08/17/19 Time seen by psych provider: 08:05 Psych Note: Reason for consult: SI Check in conducted with patient. Patient reports she "feels a little bit better." Patient reports no side effects or concerns with medications. Patient verbalized frustration that no one in her family other than her son's ex-girlfriend is "helping me." Patient spoke of existential concerns related to her future if her life doesn't change. Patient reflected on poor life choices. Patient stated she has been "ill" and out of work for 2 weeks, and does not have to return to work until Sunday. Patient is considering go with her son's ex-girlfriend to [place] so patient can visit family. Patient states she is "fine" when she sleeps, but when she wakes up she is reminded "I gotta face reality." Patient reports no concerns with discharge. Discussed the importance of following up with a mental health provider to process through thoughts and emotions, build an action plan for self reliance, and learn how to build healthy boundaries with loved ones. Provided patient with CBT techniques to reframe maladaptive thoughts. Discussed the importance of consistency of medication management and using skills learned in therapy. Discussed change as a process. Discussed acting on the change process, behavior, and consequences are her responsibility. Per verbal report from the nurse, patient at well last night and there were no behaviors or other concerns. Patient is alert and oriented to person, place, time and circumstance. Mood is normal with congruent affect. Clinician notes mood and affect were within normal limits for topic of conversation. Patient denies current suicidal ideation. Patient denies homicidal ideation. Delusions are absent and behavior is congruent with an intact reality based presentation (i.e., organized and linear through processes). There is no observed behavior that suggests patient is responding to internal stimuli. Patient is able to engage in organized, rational thought processes. Patient is able to express needs and wants in a logical manner. Patient denies current auditory and visual hallucinations. Eye contact is appropriate. Conversational speech is within normal rate, tone, and prosody. Intellectual ability appears to be within average range. Attention and concentration are good. Insight, judgment and impulse control are currently good. Medication recommendations per [facility] contracted psychiatrist Dr. Tariq MD are as follows: Continue Zyprexa 5MG, twice a day Continue Prozac 20MG, daily Continue Cogentin 1MG, daily Impression/Plan: Patient is cleared from acute psychiatric services. Medication recommendations have been provided. Patient was kept overnight for medication stabilization and observation. Patient presented with experiencing emotional di stress related to chronic and acute psychosocial stressors. Patient denies current suicidal ideation. Clinician spent significant time with patient providing psychoeducation, CBT techniques to address maladaptive thought patterns (ruminating throughts/overthinking), and discussing resources in the community that could assist patient will developing a plan of action to address her stressors. Patient would benefit from outpatient mental health services and utilizing resources in the community that could assist with imporving her life circumstances. Patient was provided with a mental health resource list. Patient was provided with a street sheet resource with career service resource contact information highlighted. Clinician provided patient with the contact information for the GED program at [facility]. Patient was encouraged to follow up on her acceptance with the [facility]. Dr. Clemens was consulted on the care and management of this patient; attending physician is in agreement with recommendations and disposition.
[2019-08-17] MEDS ORDERED: BENZTROPINE MESYLATE 1 MG TABLET PO SCH (10:00)
[2019-08-17] MEDS ORDERED: FLUOXETINE HCL 20 MG CAPSULE PO SCH (10:00)
[2019-08-17] MEDS: FLUOXETINE HCL 20 MG CAPSULE PO SCH (10:40)
[2019-08-17] MEDS: BENZTROPINE MESYLATE 1 MG TABLET PO SCH (10:41)
[2019-08-17] MEDS: OLANZAPINE 5 MG TABLET PO SCH (10:41)
[2019-08-17 10:51] VITALS: BP 133/89
--- NOTE | 2019-08-18 00:25 | EKG REPORT ---
SEVERITY:- NORMAL ECG - SINUS RHYTHM NONSPECIFIC T CHANGES : Confirmed by: Antonella Mooney 18-Aug-2019 00:25:15
== END 2019-08-17 10:53 | disposition home or self-care (01) ==
LOC: ER 12:16
DX: R45.851 Suicidal ideations (principal); F32.9 Major depressive disorder, single episode, unspecified
CPT/HCPCS: 36415; 71045; 80053; 80307; 81001; 84703; 85025; 93005; 93010; 99285

== ENCOUNTER 2019-12-15 11:22 | Emergency (ER) | payer SELFPAY ==
--- NOTE | 2019-12-15 12:01 | ER Document Report ---
ED Medical Screen (RME) - General Chief Complaint: Abdominal Pain Stated Complaint: ABDOMINAL/FLANK PAIN Time Seen by Provider: 12/15/19 11:55 Notes: HPI: 41-year-old obese female presenting to the emergency department with 3 days of constant pain in the left flank left lower quadrant region. Does not have nausea vomiting fever or dysuria. Pain is been constant worsened by movement and bending at the waist. States she had pain for 1 day approximately a week ago but that resolved. No history of kidney stones or diverticulitis PHYSICAL EXAMINATION: There is no reproducible pain on palpation of the left lower quadrant or left flank region but that is the area the patient indicates hurts. I have greeted and performed a rapid initial assessment of this patient. A comprehensive ED assessment and evaluation of the patient, analysis of test results and completion of medical decision making process will be conducted by an additional ED providers. TRAVEL OUTSIDE OF THE [place] IN LAST 30 DAYS: No - Related Data Allergies/Adverse Reactions: cyclobenzaprine [From Flexeril] Allergy (Verified 08/16/19 12:27) diphenhydramine [From Benadryl Allergy] Allergy (Verified 08/16/19 12:27) Past Medical History - Social History Frequency of alcohol use: Rare Drug Abuse: Marijuana - Past Medical History Cardiac Medical History: Reports: Hx Hypercholesterolemia Renal/ Medical History: Denies: Hx Peritoneal Dialysis Musculoskeltal Medical History: Reports Hx Arthritis Psychiatric Medical History: Reports: Hx Anxiety, Hx Depression - +anxiety Past Surgical History: Reports: Hx Orthopedic Surgery - 2 ankle surgery, R knee Physical Exam - Vital signs Vitals: Temp Pulse Resp BP Pulse Ox 97.7 F 69 20 162/104 H 98 12/15/19 11:27 12/15/19 11:27 12/15/19 11:27 12/15/19 11:27 12/15/19 11:27 Course - Vital Signs Vital signs: Temp Pulse Resp BP Pulse Ox 97.7 F 69 20 162/104 H 98 12/15/19 11:27 12/15/19 11:27 12/15/19 11:27 12/15/19 11:27 12/15/19 11:27
--- NOTE | 2019-12-15 12:20 | ER Document Report ---
ED GI/ - General Chief Complaint: Abdominal Pain Stated Complaint: ABDOMINAL/FLANK PAIN Time Seen by Provider: 12/15/19 11:55 Primary Care Provider: JERZY RAMIREZ MD [COMMUNITY BASED STAFF] - Follow up as needed Mode of Arrival: Wheelchair Information source: Patient Notes: 49-year-old female with past medical history significant for hypertension, depression arthritis presents emergency room complaining of left flank pain that started approximately 2 weeks ago. Patient states it only lasted a day and went away without any intervention states it returned 3 days ago. States pain is worse with movement. Denies it as a constant aching stabbing sensation. She complains of nausea without vomiting. No fevers. No urinary symptoms. Has been taking ibuprofen without relief. Did not take any medications today. TRAVEL OUTSIDE OF THE [place] IN LAST 30 DAYS: No - Related Data Allergies/Adverse Reactions: cyclobenzaprine [From Flexeril] Allergy (Verified 08/16/19 12:27) diphenhydramine [From Benadryl Allergy] Allergy (Verified 08/16/19 12:27) Past Medical History - General Information source: Patient - Social History Smoking Status: Current Every Day Smoker Frequency of alcohol use: Rare Drug Abuse: Marijuana Family History: Reviewed & Not Pertinent - Past Medical History Cardiac Medical History: Reports: Hx Hypercholesterolemia Renal/ Medical History: Denies: Hx Peritoneal Dialysis Musculoskeletal Medical History: Reports Hx Arthritis Psychiatric Medical History: Reports: Hx Anxiety, Hx Depression - +anxiety Past Surgical History: Reports: Hx Orthopedic Surgery - 2 ankle surgery, R knee Review of Systems - Review of Systems Constitutional: No symptoms reported Cardiovascular: No symptoms reported Respiratory: No symptoms reported Gastrointestinal: Nausea. denies: Abdominal pain, Vomiting Genitourinary: Flank pain Musculoskeletal: Back pain Skin: No symptoms reported Neurological/Psychological: No symptoms reported -: Yes All other systems reviewed and negative Physical Exam - Vital signs Vitals: Temp Pulse Resp BP Pulse Ox 97.7 F 69 20 162/104 H 98 12/15/19 11:27 12/15/19 11:27 12/15/19 11:27 12/15/19 11:27 12/15/19 11:27 - General General appearance: Appears well, Alert In distress: Mild - Respiratory Respiratory status: No respiratory distress Chest status: Nontender Breath sounds: Normal Chest palpation: Normal - Cardiovascular Rhythm: Regular Heart sounds: Normal auscultation Murmur: No - Abdominal Inspection: Normal Distension: No distension Bowel sounds: Normal Tenderness: Nontender Organomegaly: No organomegaly - Back Back: Normal, CVA tenderness - Left-sided. No: Vertebra tenderness - Neurological Neuro grossly intact: Yes Cognition: Normal Orientation: AAOx4 Vici Coma Scale Eye Opening: Spontaneous Gena Coma Scale Verbal: Oriented Gena Coma Scale Motor: Obeys Commands Gena Coma Scale Total: 15 Speech: Normal Motor strength normal: LUE, RUE, LLE, RLE Sensory: Normal - Skin Skin Temperature: Warm Skin Moisture: Dry Skin Color: Normal Course - Re-evaluation Re-evalutation: 12/15/19 15:24 Patient's resting comfortably decreased pain. Reviewed all test results with patient. Counseled to take the muscle relaxers and antibiotics as prescribed. Also importance of following up outpatient with a primary care physician for her hypertension and chronic medical conditions. She has been provided with on-call physician as well as community care clinic. Patient was given strict return to the emergency room guidelines. Return for any new or worsening symptoms. All questions were answered. Patient verbalized understanding and agrees with plan of care. - Vital Signs Vital signs: Temp Pulse Resp BP Pulse Ox 98.1 F 77 18 128/92 H 98 12/15/19 15:48 12/15/19 15:48 12/15/19 15:48 12/15/19 15:48 12/15/19 15:48 - Laboratory Result Diagrams: 12/15/19 12:15 12/15/19 12:15 Laboratory results interpreted by me: 12/15/19 12/15/19 12:15 12:15 Calcium 10.3 H Alkaline Phosphatase 152 H Urine Protein 30 H Urine Blood MODERATE H Urine Urobilinogen 2.0 H Ur Leukocyte Esterase SMALL H - Diagnostic Test Radiology reviewed: Reports reviewed Discharge - Discharge Clinical Impression: UTI (urinary tract infection) Qualifiers: Urinary tract infection type: site unspecified Hematuria presence: without hematuria Qualified Code(s): N39.0 - Urinary tract infection, site not specified Hypertension Qualifiers: Hypertension type: unspecified Qualified Code(s): I10 - Essential (primary) hypertension Back pain Qualifiers: Back pain location: low back pain Chronicity: acute Back pain laterality: left Sciatica presence: without sciatica Qualified Code(s): M54.5 - Low back pain Condition: Stable Disposition: HOME, SELF-CARE Instructions: Muscle Strain ([facility]), Trimethoprim-Sulfa ([facility]), Urinary Tract Infection ([facility]), Flank Pain ([facility]) Additional Instructions: Take medications as prescribed. It is imperative that you follow-up outpatient with a primary care physician for management of your hypertension and other medical conditions. Return to the emergency room for any new or worsening symptoms. Prescriptions: Sulfamethoxazole/Trimethoprim [Bactrim Ds Tablet] 1 tab PO BID #10 tablet Methocarbamol [Robaxin 500 mg Tablet] 500 mg PO QID #16 tablet Referrals: JERZY RAMIREZ MD [COMMUNITY BASED STAFF] - Follow up as needed
[2019-12-15 12:40] LABS: ABSOLUTE EOSINOPHILS # (AUTO) 0.1 10^3/uL (0.0-0.6); ABSOLUTE LYMPHOCYTES (AUTO) 2.7 10^3/uL (0.5-4.7); ABSOLUTE MONOCYTES (AUTO) 0.5 10^3/uL (0.1-1.4); ABSOLUTE NEUT (AUTO) 4.8 10^3/uL (1.7-8.2); BASOPHILS % (AUTO) 0.5 % (0-2); EOSINOPHILS % (AUTO) 1.6 % (0-6); HEMATOCRIT 42.3 % (36.0-47.0); HEMOGLOBIN 14.7 g/dL (12.0-15.5); LYMPHOCYTES % (AUTO) 33.5 % (13-45); MEAN CORPUSCULAR HEMOGLOBIN 31.1 pg (27.0-33.4); MEAN CORPUSCULAR HGB CONC 34.8 g/dL (32.0-36.0); MEAN CORPUSCULAR VOLUME 90 fl (80-97); MONOCYTES % (AUTO) 6.6 % (3-13); PLATELET COUNT 236 10^3/uL (150-450); RED BLOOD COUNT 4.73 10^6/uL (3.72-5.28); RED CELL DISTRIBUTION WIDTH 13.3 % (11.5-14.0); SEGMENTED NEUTROPHILS % (AUTO) 57.8 % (42-78); TOTAL CELLS COUNTED % (AUTO) 100 %; WHITE BLOOD COUNT 8.2 10^3/uL (4.0-10.5)
[2019-12-15 12:45] LABS: APPEARANCE,URINE SLIGHTLY-CLOUDY; BILIRUBIN,URINE NEGATIVE (NEGATIVE); COLOR,URINE YELLOW; GLUCOSE, URINE NEGATIVE (NEGATIVE); KETONES,URINE NEGATIVE (NEGATIVE); LEUKOCYTE ESTERASE,URINE SMALL (NEGATIVE); NITRITE,URINE NEGATIVE (NEGATIVE); PROTEIN,URINE 30 mg/dL (NEGATIVE); URINE SPECIFIC GRAVITY 1.028
[2019-12-15] MEDS ORDERED: KETOROLAC TROMETHAMINE INJ/PF 30 MG/1 ML SDV IV ONE (12:58)
[2019-12-15] MEDS ORDERED: RINGERS SOLUTION,LACTATED 1,000 ML IV ONE (12:58)
[2019-12-15] MEDS ORDERED: ONDANSETRON HCL INJ/PF 4 MG/2 ML SDV IV ONE (12:58)
[2019-12-15 12:59] LABS: ALBUMIN 4.1 g/dL (3.5-5.0); ALKALINE PHOSPHATASE 152 U/L (38-126); ANION GAP 5 (5-19); ASPARTATE AMINO TRANSFERASE 24 U/L (14-36); BILIRUBIN,TOTAL 0.3 mg/dL (0.2-1.3); BLOOD UREA NITROGEN 16 mg/dL (7-20); CALCIUM 10.3 mg/dL (8.4-10.2); CARBON DIOXIDE 29 mmol/L (22-30); CHLORIDE 103 mmol/L (98-107); GLUCOSE 106 mg/dL (75-110); POTASSIUM 3.8 mmol/L (3.6-5.0); TOTAL PROTEIN 7.7 g/dL (6.3-8.2)
--- NOTE | 2019-12-15 13:36 | RADIOLOGY REPORT (SQ) ---
EXAM DESCRIPTION: CT ABD/PELVIS WITH IV ONLY IMAGES COMPLETED DATE/TIME: 12/15/2019 1:21 pm REASON FOR STUDY: left lower quad pain COMPARISON: None. TECHNIQUE: CT scan of the abdomen and pelvis performed using helical scanning technique with dynamic intravenous contrast injection. No oral contrast. Images reviewed with lung, soft tissue, and bone windows. Reconstructed coronal and sagittal MPR images reviewed. Delayed images for evaluation of the urinary system also acquired. All images stored on PACS. All CT scanners at this facility use dose modulation, iterative reconstruction, and/or weight based d osing when appropriate to reduce radiation dose to as low as reasonably achievable (ALARA). [facility]: Dose Right [facility]: CareDose [facility]: Dose Right [facility]: Teradose 4D [facility]: Proximagen CONTRAST TYPE AND DOSE: contrast/concentration: Isovue 350.00 mmol/ml; Total Contrast Delivered: 100 .0 ml; Total Saline Delivered: 70.0 ml RENAL FUNCTION: BUN 16, creatinine 0.67 RADIATION DOSE: CT Rad equipment meets quality standard of care and radiation dose reduction techniq ues were employed. CTDIvol: NaN - NaN mGy. DLP: 0 mGy-cm.. LIMITATIONS: None. FINDINGS: LOWER CHEST: No consolidation or effusions. No pneumothorax. LIVER: No intrahepatic abnormalities. There is a focal 2.7 cm lesion just posterior to the right lob e of liver best demonstrated on series 3 image 24 through 28. This is adjacent to the upper abdomina l wall a may be related to prior trauma possibly old infectious or inflammatory process. Is thought represent an incidental finding. SPLEEN: Single splenic granuloma. No suspicious findings. PANCREAS: No masses. No significant calcifications. No adjacent inflammation or peripancreatic fluid collections. Pancreatic duct not dilated. GALLBLADDER: No identified stones by CT criteria. No inflammatory changes to suggest cholecystitis. ADRENAL GLANDS: No significant masses or asymmetry. RIGHT KIDNEY AND URETER: No solid masses. No significant calcifications. No hydronephrosis or hyd roureter. LEFT KIDNEY AND URETER: No solid masses. No significant calcifications. No hydronephrosis or hydr oureter. AORTA AND VESSELS: No aneurysm. No dissection. Renal arteries, SMA, celiac without stenosis. RETROPERITONEUM: No retroperitoneal adenopathy, hemorrhage or masses. BOWEL AND PERITONEAL CAVITY: No masses or inflammatory changes. No free fluid or peritoneal masses. APPENDIX: Normal. PELVIS: No mass. No free fluid. Normal bladder. ABDOMINAL WALL: No masses. No hernias. BONES: No significant or acute findings. OTHER: No other significant finding. IMPRESSION: 1. No acute findings in the abdomen or pelvis. 2. 2.7 cm soft tissue mass adjacent to the upper posterior right abdominal wall best demonstrated on series 3 images 24-28 as described. This has peripheral calcification in may be related to old infe ctious or inflammatory process. Possibly posttraumatic TECHNICAL DOCUMENTATION: JOB ID: [id number] Quality ID # [id number]: Final reports with documentation of one or more dose reduction techniques (e.g., Au tomated exposure control, adjustment of the mA and/or kV according to patient size, use of iterative reconstruction technique) 2010 [employer]- All Rights Reserved Reading location - IP/workstation name: [email or web address]
[2019-12-15] MEDS ORDERED: METHOCARBAMOL 500 MG TABLET PO ONE (14:08)
[2019-12-15 15:54] VITALS: BP 128/92
== END 2019-12-15 15:48 | disposition home or self-care (01) ==
LOC: ER 11:22
DX: N39.0 Urinary tract infection, site not specified (principal); R19.00 Intra-abdominal and pelvic swelling, mass and lump, unspecified site; R11.0 Nausea; M54.9 Dorsalgia, unspecified; I10 Essential (primary) hypertension; R10.9 Unspecified abdominal pain; F17.200 Nicotine dependence, unspecified, uncomplicated; Z88.8 Allergy status to other drugs, medicaments and biological substances
CPT/HCPCS: 99284; 96361; 96374; 96375; 36415; 87086; 85025; 80053; 81001; 74177; J1885; J2405; J7120